=== PATIENT | female | born 1965 | race Caucasian/White ===

== ENCOUNTER 2024-08-01 13:54 | Emergency (ER) | payer OTHER, SELFPAY ==
--- NOTE | ~2024-08-01 | XR_ITS ---
EXAMINATION: XR chest 1V Exam Date/Time: 08/01/2024 17:11 CDT HISTORY: SOB, COUGH X 1 WEEK Comparison: None. RESULT: Lines, tubes, and devices: Cholecystectomy clips. Lungs and pleura: Clear. Cardiomediastinal silhouette: Normal. Other: No acute osseous or upper abdominal finding. IMPRESSION: No acute cardiopulmonary process. Reviewed, dictated and finalized at location [facility].
[2024-08-01 14:00] VITALS: BP 137/81; PULSE 97; RESP 20; TEMP 36.4; O2SAT 99
[2024-08-01 16:30] LABS: Strep Group A RT-PCR NOT DETECTED (Negative)
[2024-08-01 16:42] LABS: Influenza A QL RT-PCR Negative (Negative); Influenza B QL RT-PCR Negative (Negative); RSV RNA, RT-PCR Negative (Negative); SARS-CoV-2 RNA PCR Negative (Negative)
[2024-08-01 17:00] VITALS: BP 99/65; PULSE 89; RESP 20; TEMP 37.1; O2SAT 99
[2024-08-01 17:11] LABS: Glucose Point of Care 103 mg/dl (65-105)
[2024-08-01 17:15] VITALS: BP 106/70
--- NOTE | 2024-08-01 17:39 | ED_ITS ---
HPI - General Adult General Chief complaint: Upper Respiratory Infection Stated complaint: Difficulty Swallowing or Coughing Time Seen by Provider: 08/01/24 15:46 History of Present Illness HPI narrative: 59-year-old female presenting to the emergency department for evaluation greater than 7 days of increased cough and congestion. Patient does report some associated shortness of breath. Patient states her symptoms had began to improve but then began worsening again yesterday. Related Data Allergies Allergy/AdvReac Type Severity Reaction Status Date / Time No Known Allergies Allergy Verified 08/01/24 17:00 Review of Systems Review of Systems: All systems reviewed & are unremarkable except as noted in HPI and below Exam Narrative: APPEARANCE: Well appearing, no pain, no distress, well-nourished. HEAD: normocephalic, atraumatic. EYES: PERRLA/EOMI, conjunctivae clear. NOSE: Normal no drainage EARS:TMS clear with good light reflex. THROAT: Pharynx clear, no exudate. NECK: Supple. No adenopathy, no masses. RESPIRATORY: Airway patent, respirations nonlabored. Clear to auscultation bilaterally, no rales, rhonchi, wheezing. CARDIOVASCULAR: Regular rate and rhythm without murmurs rubs or gallops. ABDOMINAL: Soft, nontender, nondistended, normal bowel sounds MUSCULOSKELETAL: Moves all extremities. Strength/ROM intact, No edema, No calf tenderness. NEURO: Alert. Cranial nerves II through XII intact. Good gait. Good coordination SKIN: Warm, dry. Normal Color Course Vital Signs Vital signs: Vital Signs Temperature 97.6 F 08/01/24 14:00 Pulse Rate 97 08/01/24 14:00 Respiratory Rate 20 08/01/24 14:00 Blood Pressure 137/81 08/01/24 14:00 Pulse Oximetry 99 08/01/24 14:00 Oxygen Delivery Room Air 08/01/24 14:00 Temperature 98.7 F 08/01/24 17:00 Pulse Rate 89 08/01/24 17:00 Respiratory Rate 20 08/01/24 17:00 Blood Pressure 106/70 08/01/24 17:15 Pulse Oximetry 99 08/01/24 17:00 Oxygen Delivery Room Air 08/01/24 14:00 Medical Decision Making [facility] Narrative Medical decision making narrative: 59-year-old female present to the emergency department for evaluation for cough and congestion this been going on for approximately 1 week. Patient is afebrile with no hypoxia. Patient was negative for influenza RSV COVID and for strep. Patient's x-ray shows no acute cardiopulmonary abnormality. Patient's symptoms had been improving but worsened yesterday. Patient will be treated for bacterial infection. Patient was provided a spacer for her albuterol inhaler. Patient is already on Tessalon Perles and steroids. Patient will be started on Augmentin and his throat. All questions concerns were addressed patient was comfortable the plan for discharge and close follow-up Differential Diagnosis Differential Diagnosis: Pneumonia, influenza, RSV, COVID, pneumothorax Vital Signs Vital Signs: Vital Signs Temperature 97.6 F 08/01/24 14:00 Pulse Rate 97 08/01/24 14:00 Respiratory Rate 20 08/01/24 14:00 Blood Pressure 137/81 08/01/24 14:00 Pulse Oximetry 99 08/01/24 14:00 Oxygen Delivery Room Air 08/01/24 14:00 Temperature 98.7 F 08/01/24 17:00 Pulse Rate 89 08/01/24 17:00 Respiratory Rate 20 08/01/24 17:00 Blood Pressure 106/70 08/01/24 17:15 Pulse Oximetry 99 08/01/24 17:00 Oxygen Delivery Room Air 08/01/24 14:00 Lab Data Lab results reviewed: Yes I reviewed the patient's lab results. Labs: Lab Results 08/01/24 08/01/24 Range/Units 15:58 17:09 POC Capillary Glucose 103 (65-105) mg/dl Influenza A (RT-PCR) Negative (Negative) Influenza B (RT-PCR) Negative (Negative) RSV (RT-PCR) Negative (Negative) SARS-CoV-2 RNA (RT-PCR) Negative (Negative) Group A Strep (PCR) Not detected (Negative) Discharge Plan Discharge Clinical Impression: Pneumonia Patient Disposition: Home, Self-Care Condition: Stable Instructions: Antibiotic Form, Pneumonia (ED) Additional Instructions: Antibiotic as directed until completed. Albuterol inhaler with spacer as directed. Tessalon Perles for cough. Have close follow-up with primary care physician. If you have any worsening symptoms then please call or return to the emergency department. Prescriptions: New amoxicillin-pot clavulanate 875-125 mg tablet 1 tablet PO Q12H 7 Days Qty: 14 0RF azithromycin 250 mg tablet See Rx Instructions .ROUTE .COMPLEX Qty: 6 0RF Rx Instructions: For 250 mg dose pack: take 500 mg today (day 1), then 250 mg for 4 days (days 2-5) albuterol sulfate 90 mcg/actuation HFA aerosol inhaler 1 inh inhalation QID PRN (Reason: shortness of breath or wheezing) Qty: 6.7 0RF Follow-up/Referrals: PHYSICIAN,[employer] [Primary Care Provider] -
[2024-08-01] MEDS: AZITHROMYCIN 250 MG TABLET 500 MG PO (17:46)
[2024-08-01] MEDS: AMOXICILLIN/CLAVULANATE K 875-125 MG TAB 1 TABLET PO (17:46)
== END 2024-08-01 18:21 | disposition home or self-care (01) ==
PROVIDERS: Emergency Medicine; Emergency Provider Emergency Medicine
DX: J18.9 Pneumonia, unspecified organism (principal); Z20.822 Contact with and (suspected) exposure to COVID-19
CPT/HCPCS: 71045; 82948; 87637; 87651; 94664; 99283; A9270